=== PATIENT | male | born 1965 | race Caucasian/White ===

== ENCOUNTER 2019-11-23 11:20 | Inpatient (IN) ==
[2019-11-23] MEDS ORDERED: TUSSIONEX PENNKINETIC SUSP PO PRN (12:32)
--- NOTE | 2019-11-23 13:01 | RAD ---
HISTORYSOB, PNEUMONIA, POSS COVIDSTUDYTwo-view [id number]/11/2019 [facility]INDINGSThe trachea is midline. The cardiac silhouette is unremarkable. Chronic interstitial lung changes are observed without focal infiltrate or effusion. The bony thorax is unremarkable.IMPRESSIONNo acute cardiopulmonary disease.Electronically signed by: BAO SHANKAR (Nov 23, 2019 12:59:50)
[2019-11-23 13:32] LABS: BASOPHILS # (AUTO) 0.1 X10^3/uL (0.0-0.1); BASOPHILS % (AUTO) 0.9 % (0.2-1.0); EOSINOPHILS # (AUTO) 0.8 x10^3/uL (0.0-0.2); EOSINOPHILS % (AUTO) 10.2 % (0.9-2.9); HEMATOCRIT 52.2 % (42.0-54.0); HEMOGLOBIN 17.9 g/dL (13.5-18.0); LYMPHOCYTES # (AUTO) 2.2 X10^3/uL (1.3-2.9); LYMPHOCYTES % (AUTO) 26.9 % (21.0-51.0); MEAN CORPUSCULAR HEMOGLOBIN 32.9 pg (27.0-34.0); MEAN CORPUSCULAR HGB CONC 34.4 g/dL (33.0-35.0); MEAN CORPUSCULAR VOLUME 95.6 fL (80.0-100.0); MEAN PLATELET VOLUME 7.9 fL (7.4-11.0); MONOCYTES # (AUTO) 0.5 x10^3/uL (0.3-0.8); MONOCYTES % (AUTO) 5.5 % (0.0-13.0); NEUTROPHILS # (AUTO) 4.6 x10^3/uL (2.2-4.8); NEUTROPHILS % (AUTO) 56.5 % (42.0-75.0); PLATELET COUNT 263 X10^3/uL (150.0-450.0); RED BLOOD COUNT 5.46 X10^6/uL (4.7-6.0); RED CELL DISTRIBUTION WIDTH 13.5 % (11.6-16.5); WHITE BLOOD COUNT 8.2 X10^3/uL (3.6-10.0)
[2019-11-23 13:45] LABS: ALANINE AMINOTRANSFERASE 35 Units/L (12-78); ALBUMIN 3.7 g/dL (3.4-5.0); ALKALINE PHOSPHATASE 76 Units/L (46-116); ASPARTATE AMINO TRANSFERASE 29 Units/L (15-37); BLOOD UREA NITROGEN 18 mg/dL (7-18); CALCIUM 8.7 mg/dL (8.5-10.1); CARBON DIOXIDE 24.5 mmol/L (21-32); CHLORIDE 103 mmol/L (98-107); COR NA(FOR HYPERGLY) 138 mmol/L (136-145); CREATININE 1.16 mg/dL (0.70-1.30); SODIUM 138 mmol/L (136-145); TOTAL PROTEIN 7.1 g/dL (6.4-8.2); eGFR NON BLACK RACES > 60 (>60)
[2019-11-23] MEDS ORDERED: ROBITUSSIN DM ONE (14:49)
[2019-11-23] MEDS ORDERED: NS 1/2 1000 ML IV 1,000 ML IV ONE (14:50)
[2019-11-23] MEDS ORDERED: LEVAQUIN PREMIX IV 750 MG 750 MG/150 ML BAG IV ONE (14:50)
[2019-11-23] MEDS ORDERED: VSL#3 PO ONE (14:51)
[2019-11-23] MEDS ORDERED: DUONEB 0.5 MG/3 MG (3 mL) NEB ONE (14:55)
[2019-11-23] MEDS: ROBITUSSIN DM PO SCH ×3 (15:01→20:43)
[2019-11-23 15:02] LABS: ABG ALLEN TEST POS; ABG BASE EXCESS 2.4 mmol/L (-2.0-2.0); ABG HCO3 27.2 mmol/L (22-26)
[2019-11-23] MEDS: NS 1/2 1000 ML IV 1,000 ML IV SCH (15:02)
[2019-11-23] MEDS: VSL#3 PO SCH (15:02)
[2019-11-23] MEDS: LEVAQUIN PREMIX IV 750 MG 750 MG/150 ML BAG IV SCH (15:03)
[2019-11-23] MEDS: DUONEB 0.5 MG/3 MG (3 mL) NEB SCH ×3 (15:06→20:47)
[2019-11-23] MEDS: PULMICORT NEB TX 0.5 MG NEB SCH ×2 (15:07→20:47)
[2019-11-23 15:43] VITALS: BMI 33.9
[2019-11-23] MEDS: MOTRIN TAB 800 MG PO PRN (18:06)
[2019-11-24] MEDS ORDERED: NS 1/2 1000 ML IV 1,000 ML IV ONE ×2 (04:41→18:04)
[2019-11-24] MEDS: NS 1/2 1000 ML IV 1,000 ML IV SCH ×2 (05:44→18:08)
[2019-11-24 06:07] LABS: BASOPHILS # (AUTO) 0.1 X10^3/uL (0.0-0.1); BASOPHILS % (AUTO) 0.8 % (0.2-1.0); EOSINOPHILS # (AUTO) 0.8 x10^3/uL (0.0-0.2); EOSINOPHILS % (AUTO) 8.2 % (0.9-2.9); HEMATOCRIT 50.4 % (42.0-54.0); HEMOGLOBIN 16.8 g/dL (13.5-18.0); LYMPHOCYTES # (AUTO) 2.7 X10^3/uL (1.3-2.9); LYMPHOCYTES % (AUTO) 29.6 % (21.0-51.0); MEAN CORPUSCULAR HEMOGLOBIN 32.4 pg (27.0-34.0); MEAN CORPUSCULAR HGB CONC 33.4 g/dL (33.0-35.0); MEAN CORPUSCULAR VOLUME 96.9 fL (80.0-100.0); MEAN PLATELET VOLUME 8.5 fL (7.4-11.0); MONOCYTES # (AUTO) 0.6 x10^3/uL (0.3-0.8); MONOCYTES % (AUTO) 6.7 % (0.0-13.0); NEUTROPHILS # (AUTO) 5.1 x10^3/uL (2.2-4.8); NEUTROPHILS % (AUTO) 54.7 % (42.0-75.0); PLATELET COUNT 251 X10^3/uL (150.0-450.0); RED CELL DISTRIBUTION WIDTH 13.6 % (11.6-16.5); WHITE BLOOD COUNT 9.3 X10^3/uL (3.6-10.0)
[2019-11-24 06:18] LABS: ALANINE AMINOTRANSFERASE 32 Units/L (12-78); ALBUMIN 3.4 g/dL (3.4-5.0); ALKALINE PHOSPHATASE 67 Units/L (46-116); ASPARTATE AMINO TRANSFERASE 30 Units/L (15-37); BLOOD UREA NITROGEN 12 mg/dL (7-18); CALCIUM 8.2 mg/dL (8.5-10.1); CHLORIDE 104 mmol/L (98-107); CREATININE 1.05 mg/dL (0.70-1.30); SODIUM 139 mmol/L (136-145); TOTAL PROTEIN 6.7 g/dL (6.4-8.2); eGFR NON BLACK RACES > 60 (>60)
[2019-11-24] MEDS: MOTRIN TAB 800 MG PO PRN ×2 (08:42→21:03)
[2019-11-24] MEDS: VSL#3 PO SCH (08:43)
[2019-11-24] MEDS: LEVAQUIN PREMIX IV 750 MG 750 MG/150 ML BAG IV SCH (08:44)
[2019-11-24] MEDS: TADALAFIL 5 MG PO SCH (08:44)
[2019-11-24] MEDS: ROBITUSSIN DM PO SCH ×4 (08:53→20:42)
--- NOTE | 2019-11-24 10:55 | DR.H&P ---
H&P - History & Physical for Day of: H&P Date: 11/23/19 - Chief Complaint Chief Complaint: COUGH, WHEEZING, FEVER, SOB, CONGESTION, WEAKNESS - History of Present Illness History of Present Illness: IS A 54 YEAR OLD PATIENT OF [facility]. HELEN CONSULTED US FOR DIRECT ADMISSION OF PATIENT DUE TO COMPLAINTS OF PERSISTENT COUGH, WHEEZING, SHORTNESS OF BREATH, FEVER, CONGESTION, AND WEAKNESS X 1 WEEK. HE WAS PLACED ON A Z-PACK AND PROAIR INHALER 7 DAYS AGO. HE WAS ALSO GIVEN ROCEPHIN 1G IM X 1 AND DECADRON 8MG IM X 1 IN THE OFFICE 7 DAYS AGO. HE DENIES IMPROVEMENT IN SYMPTOMS. HIS PMH INCLUDES GERD, ASTIGMATISM, BACK SURGE RY, AND RECENT EGD FOR ESOPHAGEAL STRICTURE. ON ARRIVAL TO THE HOSPITAL, VITALS WERE 98.5-75-22-94%RA-150/93. LABS WERE OBTAINED. ABNORMAL LAB VALUES INCLUDE THE FOLLOWING: GLUCOSE 118, CRP 3.10. WBC, HGB, HCT WERE NORMAL. AN ABG WAS OBTAINED AND REVEALED: PH 7.420, PC02 42.0, P02 71.0, HC03 27.2, 02 SATURATION 94.0, BASE EXCESS 2.4, FI02 21.0. COVID-19 NEGATIVE. BLOOD AND SPUTUM CULTURES WERE SET UP. A CHEST XRAY WAS OBTAINED AND REVEALED: The trachea is midline. The cardiac silhouette is unremarkable. Chronic interstitial lung changes are observed without focal infiltrate or effusion. The bony thorax is unremarkable. HE WAS STARTED 1/2NS AT 75 ML/HR, LEVAQUIN 750MG IV DAILY, XOPENEX NEB TX Q6H, PULMICORT NEB TX BID, TUSSIONEX 5ML PO Q12H PRN, ROBITUSSIN DM 10ML PO QID, MOTRIN 800MG PO TID PRN, PROBIOTICS 2 CAP PO DAILY, AND SUPPLEMENTAL OXYGEN. OTHERWISE, WE PLAN TO FOLLOW UP WITH AM LABS AND CHEST XRAY AND CONTINUE TO MONITOR. - Past Medical History Past Medical History: GERD - Past Surgical History Surgical History: Ortho Surgery Additional Surgical History: BACK SURGERY - Family History Family Medical History: Diabetes Mellitus, Coronary Artery Disease - Social History Does patient currently use any type of tobacco product: No (quit 3 weeks ago) Have you used tobacco products in the last 12 months: Yes Type of Tobacco Use: Cigarettes How many years tobacco product used: 25 Alcohol Use: Occasionally Drug Use: None - Medications Home Medications: No Known Drug Allergies Allergy (Verified 11/23/19 15:00) CONTINUE taking the following medications albuterol sulfate 2 inh INHALATION QID PRN 11/23/19 [History] tadalafil [Cialis] 5 mg PO DAILY 11/23/19 [History] - Review of Systems Constitutional: See HPI, Fever, Chills, Weakness Eyes: No Symptoms Reported ENT: Nose Congestion Respiratory: See HPI, Cough, Shortness of Breath, SOB with Excertion, Wheezing Cardiovascular: No Symptoms Reported Gastrointestinal: No Symptoms Reported Genitourinary: No Symptoms Reported Musculoskeletal: No Symptoms Reported Skin: No Symptoms Reported Neurological: Weakness - Physical Exam Vital Signs: Temperature 98.4 F Pulse Rate [Left Radial] 83 Pulse Rate 60 Respiratory Rate 19 Blood Pressure [Left Arm] 137/75 O2 Sat by Pulse Oximetry 91 Oriented: Normal Eyes: Normal Ear: Normal Nose: Normal Throat: Normal Respiratory: Diminished Throughout, Wheezes Throughout Cardiovascular: Normal : Normal Auscultation: Bowel Sounds: Normal Palpation: Normal Tenderness: Normal Skin: Normal Musculoskeletal: Normal Psychiatric: Normal Mood Description: Calm Affect: Normal Speech Pattern: Clear - Assessment/Plan (1) Bronchopneumonia Status: Acute Plan: ADMIT, 1/2NS AT 75 ML/HR, LEVAQUIN 750MG IV DAILY, XOPENEX NEB TX Q6H, PU LMICORT NEB TX BID, TUSSIONEX 5ML PO Q12H PRN, ROBITUSSIN DM 10ML PO QID, MOTRIN 800MG PO TID PRN, PROBIOTICS 2 CAP PO DAILY, AND SUPPLEMENTAL OXYGEN. - Allergies Allergies/Adverse Reactions: Allergies Allergy/AdvReac Type Severity Reaction Status Date / Time No Known Drug Allergies Allergy Verified 11/23/19 15:00
[2019-11-24] MEDS: XOPENEX 1.25 MG/3 ML NEBULE NEB SCH ×2 (12:18→17:05)
[2019-11-24] MEDS: PULMICORT NEB TX 0.5 MG NEB SCH ×2 (12:18→20:00)
[2019-11-24 14:26] LABS: MYCOPLASMA PNEUMONIAE IGM AB NEGATIVE (NEGATIVE)
[2019-11-25] MEDS: XOPENEX 1.25 MG/3 ML NEBULE NEB SCH ×2 (00:05→05:00)
[2019-11-25 06:54] LABS: ALANINE AMINOTRANSFERASE 33 Units/L (12-78); ALBUMIN 3.4 g/dL (3.4-5.0); ALKALINE PHOSPHATASE 68 Units/L (46-116); ASPARTATE AMINO TRANSFERASE 31 Units/L (15-37); BLOOD UREA NITROGEN 12 mg/dL (7-18); CALCIUM 8.3 mg/dL (8.5-10.1); CARBON DIOXIDE 22.7 mmol/L (21-32); CHLORIDE 104 mmol/L (98-107); CREATININE 1.11 mg/dL (0.70-1.30); SODIUM 138 mmol/L (136-145); TOTAL PROTEIN 6.7 g/dL (6.4-8.2); eGFR NON BLACK RACES > 60 (>60)
[2019-11-25 06:55] LABS: BASOPHILS % (AUTO) 0.5 % (0.2-1.0); EOSINOPHILS # (AUTO) 0.7 x10^3/uL (0.0-0.2); EOSINOPHILS % (AUTO) 8.5 % (0.9-2.9); HEMATOCRIT 49.4 % (42.0-54.0); HEMOGLOBIN 16.9 g/dL (13.5-18.0); LYMPHOCYTES # (AUTO) 2.3 X10^3/uL (1.3-2.9); LYMPHOCYTES % (AUTO) 26.9 % (21.0-51.0); MEAN CORPUSCULAR HEMOGLOBIN 32.8 pg (27.0-34.0); MEAN CORPUSCULAR HGB CONC 34.3 g/dL (33.0-35.0); MEAN CORPUSCULAR VOLUME 95.6 fL (80.0-100.0); MEAN PLATELET VOLUME 7.8 fL (7.4-11.0); MONOCYTES # (AUTO) 0.5 x10^3/uL (0.3-0.8); NEUTROPHILS % (AUTO) 58.1 % (42.0-75.0); PLATELET COUNT 244 X10^3/uL (150.0-450.0); RED BLOOD COUNT 5.16 X10^6/uL (4.7-6.0); RED CELL DISTRIBUTION WIDTH 13.5 % (11.6-16.5); WHITE BLOOD COUNT 8.6 X10^3/uL (3.6-10.0)
--- NOTE | 2019-11-25 07:04 | RAD ---
HISTORYShortness of breathSTUDYChest AP [id number]/2020FINDINGSThe heart is within normal limits in size. The chelsey are normal. The lung edmond are clear. No pleural effusions are identified. Bony thorax is unremarkable.IMPRESSIONNo significant abnormality identifiedElectronically signed by: JENNIFER GREEN (Nov 25, 2019 07:02:41)
[2019-11-25 07:38] VITALS: BP 141/81
[2019-11-25] MEDS: PULMICORT NEB TX 0.5 MG NEB SCH (08:08)
[2019-11-25] MEDS: LEVAQUIN PREMIX IV 750 MG 750 MG/150 ML BAG IV SCH (09:07)
[2019-11-25] MEDS: ROBITUSSIN DM PO SCH (09:10)
[2019-11-25] MEDS: VSL#3 PO SCH (09:10)
[2019-11-25] MEDS: TADALAFIL 5 MG PO SCH (09:10)
[2019-11-25] MEDS: NS 1/2 1000 ML IV 1,000 ML IV SCH (09:10)
== END 2019-11-25 11:20 | disposition home or self-care (01) | DRG 179 ==
LOC: OBS 11:53 → MED/SURG 14:34
PROVIDERS: ADMIT Internal Medicine; ATTEND Internal Medicine
DX: J15.5 Pneumonia due to Escherichia coli; R53.1 Weakness; R06.02 Shortness of breath; Z11.59 Encounter for screening for other viral diseases; K21.9 Gastro-esophageal reflux disease without esophagitis